=== PATIENT | male | born 1970 | race African-American/Black ===

== ENCOUNTER 2020-10-31 01:20 | Observation (INO) ==
[2020-10-31] MEDS ORDERED: hydrALAZINE 20 MG/1 ML VIAL IV STA ×2 (01:48→03:08)
[2020-10-31 02:10] LABS: Basophils % 0.3 % (0.0-0.8); Eosinophils # 0.3 10*3/uL (0.0-0.87); Eosinophils % 3.3 % (0.00-10.9); Hematocrit 38.1 VOL% (42.0-52.0); Hemoglobin 12.2 GM/DL (14.0-18.0); Immature Granulocytes % 0.1 %; Immature Granulocytes Absolute 0.01 #; Lymphocytes # 3.8 10*3/uL (1.4-4.0); Lymphocytes % 48.6 % (21.2-54.2); Mean Corpuscular Volume 97.9 FL (87-102); Mean Platelet Volume 12.2 FL (9.6-12.0); Monocytes % 5.8 % (1.7-12.7); Neutrophils % 41.9 % (38.7-73.9); Platelet Count 213 T/CUMM (130-400); Red Blood Count 3.89 MC/CUMM (3.8-5.5); Red Cell Distribution Width 13.1 % (9.3-17.3); White Blood Count 7.8 T/CUMM (4-12)
[2020-10-31 02:40] LABS: Alanine Aminotransferase 14 U/L (16-61); Albumin 3.9 G/DL (3.4-5.0); Alkaline Phosphatase 85 U/L (45-117); Aspartate Amino Transferase 15 U/L (0-37); Blood Urea Nitrogen 20 MG/DL (7-18); Calcium 9.1 MG/DL (8.5-10.1); Carbon Dioxide 25 MMOL/L (21-32); Estimated Glom Filtration Rate 125 ML/MIN; Glucose 118 MG/DL (74-106); Osmolality,Calculated 278.7 MOS/KG (273-304); Potassium 3.3 MMOL/L (3.5-5.1); Sodium 138 MMOL/L (136-145); Total Protein 7.7 G/DL (6.4-8.2)
[2020-10-31 03:23] LABS: Bilirubin,Urine Negative (Negative); Blood, Urine Negative (Negative); Glucose,Urine (UA) Negative (Negative); Ketones,Urine Negative (Negative); Mucus,Urine Occasional /LPF (Occasional); Nitrite,Urine Negative (Negative); Protein,Urine Negative; RBC,Urine 4 /HPF (0-4); Squamous Epithelial Cell,Urine Occasional /HPF (0-10); Urine Appearance CLEAR (Clear); Urine Color Yellow (Yellow); Urine Specific Gravity 1.008 (1.001-1.035); Urine Urobilinogen < 2.0 EU/DL (0.2-1.0)
[2020-10-31 03:35] LABS: Barbiturates Screen,Urine Negative (Negative); Benzodiazepines Screen,Urine Negative (Negative); Cannabinoid Screen,Urine Negative (Negative); Opiate Screen,Urine Negative (Negative); Phencyclidine Screen,Urine Negative (Negative)
[2020-10-31] MEDS ORDERED: LABETALOL 20 MG/4 ML SYRINGE IV STA (04:10)
[2020-10-31] MEDS ORDERED: DEXTROSE 50% 25 GM/50 ML VIAL IV PRN (04:52)
[2020-10-31] MEDS ORDERED: ACETAMINOPHEN 325 MG TABLET PO PRN (04:52)
[2020-10-31] MEDS ORDERED: NICOTINE 21 MG/24 HR PATCH TRANSDERM PRN (04:52)
[2020-10-31] MEDS ORDERED: MORPHINE 4 MG/1 ML VIAL IV PRN (04:52)
[2020-10-31] MEDS ORDERED: GLUCAGON 1 MG VIAL IM PRN (04:52)
[2020-10-31] MEDS ORDERED: ONDANSETRON 4 MG/2 ML VIAL IV PRN (04:52)
[2020-10-31] MEDS: ATORVASTATIN 20 MG TABLET PO SCH (08:31)
[2020-10-31] MEDS: ASPIRIN EC 81 MG TABLET PO SCH (08:32)
[2020-10-31] MEDS: ENOXAPARIN 40 MG/0.4 ML SYRINGE SUBCUT SCH (08:32)
[2020-10-31] MEDS ORDERED: PNEUMOCOCCAL VACCINE (23 VALENT) 0.5 ML VIAL IM ONE (09:00)
[2020-10-31] MEDS ORDERED: MORPHINE 2 MG/1 ML SYRINGE IV PRN (14:05)
[2020-10-31] MEDS ORDERED: amLODIPine 2.5 MG TABLET PO ONE (14:56)
[2020-11-01 05:34] LABS: Basophils % 0.3 % (0.0-0.8); Eosinophils # 0.3 10*3/uL (0.0-0.87); Eosinophils % 3.9 % (0.00-10.9); Hematocrit 33.9 VOL% (42.0-52.0); Hemoglobin 11.5 GM/DL (14.0-18.0); Immature Granulocytes % 0.2 %; Immature Granulocytes Absolute 0.01 #; Lymphocytes % 47.3 % (21.2-54.2); Mean Corpuscular HGB Conc 33.9 GM/DL (32-36); Mean Corpuscular Volume 97.4 FL (87-102); Mean Platelet Volume 12.1 FL (9.6-12.0); Monocytes % 7.7 % (1.7-12.7); Neutrophils % 40.6 % (38.7-73.9); Platelet Count 185 T/CUMM (130-400); Red Blood Count 3.48 MC/CUMM (3.8-5.5); Red Cell Distribution Width 13.2 % (9.3-17.3); White Blood Count 6.4 T/CUMM (4-12)
[2020-11-01 06:00] LABS: Hypochromasia 1+; Microcytosis 1+; Platelet Estimate Adequate
[2020-11-01 06:04] LABS: Calcium 8.8 MG/DL (8.5-10.1); Osmolality,Calculated 288.8 MOS/KG (273-304); Potassium 3.5 MMOL/L (3.5-5.1)
[2020-11-01 06:45] LABS: Risk Ratio 4.71; VLDL Cholesterol 16.6 MG/DL
[2020-11-01] MEDS ORDERED: amLODIPine 2.5 MG TABLET PO SCH (09:00)
[2020-11-01] MEDS ORDERED: NICOTINE 21 MG/24 HR PATCH TRANSDERM SCH (09:00)
[2020-11-01] MEDS ORDERED: CLOPIDOGREL 75 MG TABLET PO SCH (09:00)
[2020-11-01] MEDS ORDERED: amLODIPine 5 MG TABLET PO SCH (09:00)
[2020-11-01] MEDS ORDERED: LOSARTAN 25 MG TABLET PO SCH (09:30)
[2020-11-01] MEDS: ASPIRIN EC 81 MG TABLET PO SCH (09:57)
[2020-11-01] MEDS: ATORVASTATIN 20 MG TABLET PO SCH (09:57)
[2020-11-01] MEDS: ENOXAPARIN 40 MG/0.4 ML SYRINGE SUBCUT SCH (09:58)
[2020-11-01 11:27] VITALS: BP 168/99
== END 2020-11-01 12:45 | disposition home or self-care (01) ==
LOC: N.ED 01:20 → N.EDINP 01:20 → N.5E 06:14
PROVIDERS: ADMIT Hospitalist; ATTEND Hospitalist